=== PATIENT | male | born 1980 | race Hispanic/Latino ===

== ENCOUNTER 2018-09-26 22:07 | Emergency (ER) | payer OTHER ==
--- NOTE | 2018-09-27 01:29 | XRay Report ---
RIGHT ANKLE 3 VIEWS INDICATION: ORIF 12 months ago. Recent twisting injury.. COMPARISON: No relevant prior imaging study available. FINDINGS: There are numerous cortical plates with screw fixation. Interfragmentary screw is also seen at the di stal tibia. Distal tibia fracture has healed. There is also a healed distal fibular fracture. There i s mild subjective osteopenia about the ankle which may be due to disuse. No hardware fracture is seen. No backing out of screws is seen. Posttraumatic osteoarthrosis is noted at the tibiotalar articulation. There is also degenerative escobar ge at the hindfoot. Appears to be a small tibiotalar joint effusion. Corticated ossific density posterior tibiotalar huong culation may be osteochondral bodies. IMPRESSION: 1. No hardware failure/complication is seen. 2. Posttraumatic osteoarthrosis. Signer Name: Aguila Espinosa MD Signed: 09/27/2018 1:25 AM Workstation Name: [id number]
--- NOTE | 2018-09-27 04:32 | Emergency Department Report ---
ED General Adult HPI - General Chief complaint: Medical Clearance Stated complaint: MEDICAL CLEARANCE/PLACEMENT UNTIL SATURDAY/SATURDAY Time Seen by Provider: 09/27/18 01:28 Source: patient Mode of arrival: Ambulatory Limitations: No Limitations - History of Present Illness Initial comments: Patient is a 38-year-old male who is here secondary to needing some type of help with placement. Patient was a patient at [facility] was the last 8 days. Patient was there secondary to having delusions of grandeur. Patient states he needs to speak with her present and try and go through the governmental hierarchy. Patient was discharged since he had no other psychosis, salicylates ideations the need to stabilize. Patient then tried to check back in 2 [facility] with stating that he had no vertigo until Saturday. Patient was brought here to the emergency department to help with placement. Patient has no thoughts of harming himself or others. Patient states he did step off a curb and hurt his right ankle which has a history of surgical repair. Patient was his ankle checked. - Related Data Allergies Allergy/AdvReac Type Severity Reaction Status Date / Time No Known Allergies Allergy Unverified 09/27/18 00:47 ED Review of Systems ROS: Stated complaint: MEDICAL CLEARANCE/PLACEMENT UNTIL SATURDAY/SATURDAY Other details as noted in HPI Comment: All other systems reviewed and negative ED Past Medical Hx - Past Medical History Previous Medical History?: No - Surgical History Past Surgical History?: No - Social History Smoking Status: Never Smoker ED Physical Exam - General Limitations: No Limitations General appearance: alert, anxious, other (mild pressured speech) - Head Head exam: Present: atraumatic, normocephalic - Eye Eye exam: Present: normal appearance - ENT ENT exam: Present: mucous membranes moist - Neck Neck exam: Present: normal inspection - Respiratory Respiratory exam: Present: normal lung sounds bilaterally. Absent: respiratory distress, wheezes, rales - Cardiovascular Cardiovascular Exam: Present: regular rate, normal rhythm. Absent: systolic murmur, diastolic murmur, rubs, gallop - GI/Abdominal GI/Abdominal exam: Present: soft, normal bowel sounds. Absent: distended, tenderness, guarding, rebound - Rectal Rectal exam: Present: deferred - Extremities Exam Extremities exam: Present: normal inspection, joint swelling (mild r ankle swelling, FROM) - Back Exam Back exam: Present: normal inspection - Neurological Exam Neurological exam: Present: alert, oriented X3 - Psychiatric Psychiatric exam: Present: normal affect, normal mood - Skin Skin exam: Present: warm, dry, intact, normal color. Absent: rash ED Course Vital Signs 09/26/18 09/27/18 22:53 01:30 Temperature 97.5 F L Pulse Rate 57 L Respiratory 20 18 Rate Blood Pressure 126/75 O2 Sat by Pulse 99 Oximetry ED Medical Decision Making - Radiology Data RIGHT ANKLE 3 VIEWS INDICATION: ORIF 12 months ago. Recent twisting injury.. COMPARISON: No relevant prior imaging study available. FINDINGS: There are numerous cortical plates with screw fixation. Interfragmentary screw is also seen at the distal tibia. Distal tibia fracture has healed. There is also a healed distal fibular fracture. There is mild subjective osteopenia about the ankle which may be due to disuse. No hardware fracture is seen. No backing out of screws is seen. Posttraumatic osteoarthrosis is noted at the tibiotalar articulation. There is also degenerative change at the hindfoot. Appears to be a small tibiotalar joint effusion. Corticated ossific density posterior tibiotalar articulation may be osteochondral bodies. IMPRESSION: 1. No hardware failure/complication is seen. 2. Posttraumatic osteoarthrosis. Signer Name: Aguila Espinosa MD Signed: 09/27/2018 1:25 AM Workstation Name: [id number] Transcribed By: GIL Dictated By: Aguila Espinosa MD Electronically Authenticated By: Aguila Espinosa MD Signed Date/Time: 09/27/18 0125 - Medical Decision Making Patient was seen by mental health offset second press operator and he agrees that the patient is not having acute suicidal homicidal ideations and is not psychotic although he does have some delusions. Patient will be discharged home after social work consult. Critical care attestation.: If time is entered above; I have spent that time in minutes in the direct care of this critically ill patient, excluding procedure time. ED Disposition Clinical Impression: Ankle sprain, Homelessness Disposition: -01 TO HOME OR SELFCARE Is pt being admited?: No Does the pt Need Aspirin: No Condition: Stable Referrals: BA SANDOVAL MD [Primary Care Provider] - 3-5 Days Time of Disposition: 04:32
[2018-09-27] MEDS ORDERED: IBUPROFEN PO ONE (04:33)
[2018-09-27 14:45] VITALS: BP 134/81
== END 2018-09-27 15:30 | disposition home or self-care (01) ==
LOC: EEVIPCON 22:07 → ED 22:07
DX: S93.401A Sprain of unspecified ligament of right ankle, initial encounter (principal); Z59.0 Homelessness; X58.XXXA Exposure to other specified factors, initial encounter; Y93.89 Activity, other specified; Y92.89 Other specified places as the place of occurrence of the external cause; Y99.8 Other external cause status